=== PATIENT | female | born 1960 | race Caucasian/White ===

== ENCOUNTER 2017-02-16 08:51 | Emergency (ER) | payer OTHER ==
[~2017-02-16] VITALS: Ht 165.1 cm; Wt 57.4 kg
[2017-02-16] MEDS ORDERED: SODIUM CHLORIDE 0.9% 1000ML 1,000 ML IV STA (08:56)
[2017-02-16 09:00] VITALS: TEMP 36.8; Ht 165.1 cm; Wt 57.4 kg
[2017-02-16] MEDS ORDERED: HYDROmorphone INJ 0.5 MG/0.5 ML SYR IV STA ×2 (09:03→11:37)
[2017-02-16] MEDS ORDERED: METOCLOPRAMIDE HCL INJ 5 MG/ML 2 ML VIAL IV STA (09:03)
[2017-02-16] MEDS ORDERED: OPTIRAY 320 IV PRN (09:15)
[2017-02-16 09:17] VITALS: O2SAT 93
[2017-02-16 09:27] LABS: BASO % 0.2 %; BASO ABS # 0.02 K/uL (0-0.2); EOS % 0.1 %; HEMATOCRIT 25.9 % (37-47); IG% 3.7 %; LYMPH % 7.5 %; LYMPH ABS # 0.73 K/uL (1.2-3.4); MEAN CELL VOLUME 91.5 fL (80-100); MEAN CORPUSCULAR HGB CONC 32.8 g/dl (32-36); MEAN PLATELET VOLUME 9.7 fL (7.4-10.4); MONO % 8.4 %; NEUT % 80.1 %; PLATELET COUNT 299 K/uL (130-400); RED BLOOD COUNT 2.83 M/uL (4.2-5.4); WHITE BLOOD COUNT 9.72 K/uL (4.8-10.8)
--- NOTE | 2017-02-16 09:27 | EMERGENCY ROOM VISIT NOTE ---
History Report prepared by Karrie: Skip Hope Under the Supervision of: Dr. Lino Frederick M.D. First contact with patient: 08:56 Stated Complaint: ABDOMINAL PAIN History of Present Illness The patient is a 56 year old female who presents to the Emergency Room with complaints of persistent abdominal pain that started this morning. She rates her pain as a 10/10 in severity. 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 She was discharged to [facility] approximately 2 days ago. This morning she noticed abdominal pain as well as bloody stools. She reports feeling the need to have a bowel movement, which she describes as a "burning sensation". She notes there were blood clots in her colostomy bag. 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 Review of Systems See HPI for pertinent positives & negatives. A total of 10 systems reviewed and were otherwise negative. Past Medical & Surgical Medical Problems: (1) Adenocarcinoma of small bowel (2) GERD (gastroesophageal reflux disease) Surgical Problems: (1) Colostomy in place Social History Alcohol Use: none Drug Use: none Marital Status: Housing Status: lives with family Occupation Status: retired Current/Historical Medications Scheduled Docusate Sodium (Docusate Sodium), 100 MG PO BID Dronabinol (Marinol), 2.5 MG PO BID Enoxaparin (Lovenox), 40 MG SQ DAILY Fluticasone Propionate (Nasal) (Flonase Allergy Relief), 2 SPRAY NA DAILY Gabapentin (Gabapentin), 100 MG PO TID Pantoprazole (Protonix), 40 MG PO DAILY Polyethylene Glycol 3350 (Miralax), 17 GM PO DAILY Potassium Ext Rel (Klor-Con), 20 MEQ PO DAILY Senna/Docusate Sod (Senokot S), 1 TAB PO DAILY Scheduled PRN Acetaminophen (Tylenol), 500 MG PO Q4 PRN for Pain Bisacodyl (Cvs Bisacodyl), 10 MG RE DAILY PRN for PRN Lorazepam (Ativan), 0.5 MG PO Q8H PRN for Anxiety Magnesium Hydroxide (Milk of Magnesia), 30 ML PO DAILY PRN for Constipation Ondansetron Hcl (Zofran), 4 MG PO Q6 PRN for Nausea Oxycodone HCl (Oxycodone HCl), 5 MG PO Q4 PRN for Pain Oxycodone HCl (Oxycodone HCl), 10 MG PO Q4 PRN for Pain Sodium Phosphate/Biphosphate (Fleet Enema), 1 EA [place] DAILY PRN for Constipation Allergies Coded Allergies: Amoxicillin (Unverified Allergy, Unknown, UNKNOWN, 02/16/17) CI Pigment Blue 63 (Unverified Allergy, Unknown, UNKNOWN, 02/16/17) Cephalosporins (Unverified Allergy, Unknown, UNKNOWN, 02/16/17) Duloxetine (Unverified Allergy, Unknown, UNKNOWN, 02/16/17) Vancomycin (Unverified Allergy, Unknown, UNKNOWN, 02/16/17) Physical Exam Vital Signs Date Time Temp Pulse Resp B/P (MAP) Pulse Ox O2 Delivery O2 Flow Rate FiO2 02/16/17 13:24 78 16 95/62 94 02/16/17 11:44 102 18 91/60 94 Nasal Cannula 02/16/17 09:38 96 15 97/60 94 Room Air 02/16/17 09:22 96 02/16/17 09:17 93 Room Air 02/16/17 09:00 36.8 98 18 98/63 95 Room Air Physical Exam GENERAL: Patient is a healthy-appearing well-nourished 56 year old female. HEAD: Normocephalic atraumatic EYES: Ocular movements intact pupils equal and react to light OROPHARYNX mucous membranes are moist no exudates present no erythema or edema present NECK: Supple no nuchal rigidity CHEST: Good equal expansion LUNGS: Clear and equal to auscultation CARDIAC: Normal S1 and S2 ABDOMEN: Diffusely tender throughout. Midline surgical scar in place closed by henok, appears to be healing well. Surgical drain in place and is draining a yellowish fluid. RECTAL: Exam grossly positive and exquisitely tender. BACK: No CVA tenderness EXTREMITIES: No pain upon palpation normal muscle strength in all groups no clubbing cyanosis or edema NEURO: Patient is following commands and answering questions appropriately. Alert and oriented x3 Cranial Nerves 2-12 grossly intact Medical Decision & Procedures ER Provider Diagnostic Interpretation: Radiology results as stated below per my review and radiologist interpretation: CT OF THE ABDOMEN AND PELVIS WITH CONTRAST CLINICAL HISTORY: Rectal bleeding and abdominal pain. Ostomy. COMPARISON STUDY: None. TECHNIQUE: Following IV administration of 93 mL of Optiray-320, axial images of the abdomen and pelvis were obtained from the lung bases to the proximal femurs. Images were reviewed in the axial, sagittal, and coronal planes. IV contrast was administered without complication. A dose lowering technique was utilized adhering to the principles of ALARA. CT DOSE: 300.73 mGy.cm FINDINGS: Images of the lower chest partially visualize small bilateral pleural effusions with segmental bilateral lower lobe opacities which favor atelectasis. A radiodensity within the right atrium is partially imaged and could reflect a Mcibrm-z-Eudk catheter. The liver, spleen, adrenal glands, kidneys and pancreas are unremarkable. There is no biliary or pancreatic ductal dilatation. There are postoperative findings consistent with a colectomy with right lower quadrant ileostomy. Skin henok are noted from laparotomy as well as a right upper quadrant surgical drain. Diffuse mesenteric infiltration is noted as well as a small amount of loculated ascites within the abdomen with peritoneal enhancement. No pneumatosis, free air or portal venous gas is present. There is no abdominal or pelvic lymphadenopathy. Moderate atherosclerotic plaque of the abdominal aorta is noted. Major vasculature of the abdomen is patent. No suspicious osseous lesion is present. There is moderate perirectal infiltration with mild rectal wall thickening. IMPRESSION: 1. Postoperative findings consistent with recent colectomy with right lower quadrant ileostomy. Surgical drain in place. Diffuse mesenteric infiltration with a small amount of loculated ascites within the abdomen with peritoneal enhancement. This enhancement is nonspecific and may be postsurgical given recent surgery. However, an infectious etiology could appear similar and the findings could be correlated with clinical evidence for an infection. No bowel obstruction. 2. Nonspecific perirectal infiltration with mild rectal wall thickening. 3. Small bilateral pleural effusions with lower lobe segmental opacities which favor atelectasis. Electronically signed by: Wolfgang Preciado M.D. 02/16/2017 10:48 AM Laboratory Results 02/16/17 09:11 Red Blood Count 2.83, Mean Corpuscular Volume 91.5, Mean Corpuscular Hemoglobin 30.0, Mean Corpuscular Hemoglobin Concent 32.8, Mean Platelet Volume 9.7, Neutrophils (%) (Auto) 80.1, Lymphocytes (%) (Auto) 7.5, Monocytes (%) (Auto) 8.4, Eosinophils (%) (Auto) 0.1, Basophils (%) (Auto) 0.2, Neutrophils # (Auto) 7.78, Lymphocytes # (Auto) 0.73, Monocytes # (Auto) 0.82, Eosinophils # (Auto) 0.01, Basophils # (Auto) 0.02 02/16/17 09:11 Test 02/16/17 09:11 02/16/17 09:23 White Blood Count 9.72 K/uL (4.8-10.8) Red Blood Count 2.83 M/uL (4.2-5.4) Hemoglobin 8.5 g/dL (12.0-16.0) Hematocrit 25.9 % (37-47) Mean Corpuscular Volume 91.5 fL (80-100) Mean Corpuscular Hemoglobin 30.0 pg (25-34) Mean Corpuscular Hemoglobin Concent 32.8 g/dl (32-36) Platelet Count 299 K/uL (130-400) Mean Platelet Volume 9.7 fL (7.4-10.4) Neutrophils (%) (Auto) 80.1 % Lymphocytes (%) (Auto) 7.5 % Monocytes (%) (Auto) 8.4 % Eosinophils (%) (Auto) 0.1 % Basophils (%) (Auto) 0.2 % Neutrophils # (Auto) 7.78 K/uL (1.4-6.5) Lymphocytes # (Auto) 0.73 K/uL (1.2-3.4) Monocytes # (Auto) 0.82 K/uL (0.11-0.59) Eosinophils # (Auto) 0.01 K/uL (0-0.5) Basophils # (Auto) 0.02 K/uL (0-0.2) RDW Standard Deviation 54.5 fL (36.4-46.3) RDW Coefficient of Variation 16.7 % (11.5-14.5) Immature Granulocyte % (Auto) 3.7 % Immature Granulocyte # (Auto) 0.36 K/uL (0.00-0.02) Toxic Vacuolation 1+ Polychromasia 1+ Prothrombin Time 14.7 SECONDS (9.0-12.0) Prothromb Time International Ratio 1.4 (0.9-1.1) Activated Partial Thromboplast Time 35.8 SECONDS (21.0-31.0) Partial Thromboplastin Ratio 1.4 Est Creatinine Clear Calc Drug Dose 134.6 ml/min Estimated GFR () 132.0 Estimated GFR (Non- 113.9 BUN/Creatinine Ratio 10.0 (10-20) Calcium Level 7.6 mg/dl (8.5-10.1) Total Bilirubin 4.5 mg/dl (0.2-1) Direct Bilirubin mg/dl (0-0.2) Aspartate Amino Transf (AST/SGOT) 59 U/L (15-37) Alanine Aminotransferase (ALT/SGPT) 53 U/L (12-78) Alkaline Phosphatase 190 U/L (45-117) Total Protein 5.5 gm/dl (6.4-8.2) Albumin 1.3 gm/dl (3.4-5.0) Lipase 848 U/L (73-393) Bedside Hemoglobin 8.5 g/dl (12.0-16.0) Bedside Hematocrit 25 % (37-47) Bedside Sodium 133 mEq/L (135-144) Bedside Potassium 3.6 mEq/L (3.3-5.0) Bedside Chloride 92 mEq/L (101-112) Bedside Total CO2 33 mEq/l (24-31) Anion Gap 12.0 mmol/L (16-25) Bedside Blood Urea Nitrogen < 3 mg/dl (7-18) Bedside Creatinine 0.5 mg/dl (0.6-1.3) Bedside Glucose (other) 92 mg/dl (70-99) Bedside Ionized Calcium (Lashell) 1.07 mmol/l (1.12-1.32) Labs reviewed by ED physician. Medications Administered Medications (Trade) Dose Ordered Sig/Gómez Route Start Time Stop Time Status Last Admin Dose Admin Sodium Chloride 1,000 ml @ 999 mls/hr Q1H1M STAT IV 02/16/17 08:56 02/16/17 09:56 DC 02/16/17 09:36 999 MLS/HR Hydromorphone HCl (Dilaudid Inj) 0.5 mg NOW STAT IV 02/16/17 09:03 02/16/17 09:04 DC 02/16/17 09:37 0.5 MG Metoclopramide HCl (Reglan Inj) 10 mg NOW STAT IV 02/16/17 09:03 02/16/17 09:04 DC 02/16/17 09:37 10 MG Hydromorphone HCl (Dilaudid Inj) 0.5 mg NOW STAT IV 02/16/17 11:37 02/16/17 11:38 DC 02/16/17 11:44 0.5 MG Ondansetron HCl (Zofran Inj) 4 mg NOW STAT IV 02/16/17 11:37 02/16/17 11:38 DC 02/16/17 11:44 4 MG ECG Indication: abdominal pain Rate (beats per minute): 98 Rhythm: normal sinus Findings: no acute ischemic change, no ectopy ED Course 0900: Past medical records reviewed. The patient was evaluated in room B9. A complete history and physical examination was performed. 0856: NSS 1,000 mL IV 0903: Reglan HCl 10 mg IV, Dilaudid HCl 0.5 mg IV 1137: Zofran 4 mg IV, Dilaudid 0.5 mg IV 1108: I discussed the patients case with Dr. Walton, [facility] General Surgery. He felt this will be a one-time event due to bleeding from the surgery and the fact it was clotted blood. 1135: I reevaluated the patient. She is resting comfortably and would like to go back to [facility]. I will get in touch with Dr. Recinos. 1143: I discussed the patients case with Dr. Recinos, Internal Medicine. The patient has been accepted back to [facility]. 1150: I reevaluated the patient. She is feeling well and resting comfortably. I discussed her discharge instructions and she verbalized complete understanding and agreement. Medical Decision Prior records/ancillary studies reviewed. Triage Nursing notes reviewed. The patient's history was concerning for abdominal pain. Differential diagnosis: Etiologies such as appendicitis, diverticulitis, PUD, biliary pathology, UTI, pancreatitis, obstruction, mesenteric ischemia, aortic pathology, infections, inflammatory bowel disease, renal colic, as well as others were entertained. This is a 56-year-old female who presents emergency department after a bowel movement with large amounts of red blood clots. On physical examination the patient is not bleeding. And I will note that her hemoglobin is actually higher than when she was discharged from [facility]. She is requesting pain medication therefore she was given Dilaudid 2. She was sent for CAT scan the abdomen and pelvis. I did discuss the case with the on-call surgeon and [place] who felt that the patient could be safely discharged and felt that this would be a one-time event of leftover blood from her surgery. I did discuss my findings with the patient and offered admission however she would like to be discharged back to [facility]. For this reason I did discuss the case with Dr Recinos who readily accepted the patient. Medication Reconcilliation Current Medication List: was personally reviewed by me Blood Pressure Screening Patient's blood pressure: Low blood pressure Consults Time Called: 1104 Consulting Physician: Dr. Walton, [facility] General Surgery Returned Call: 1108 I discussed the patients case with Dr. Walton, [facility] General Surgery. He felt this will be a one-time event due to bleeding from the surgery and the fact it was clotted blood. Additional Consults: Time Called: 1135 Consulted Physician: Dr. Recinos, Internal Medicine Returned Call: 1143 Additional Comments: I discussed the patients case with Dr. Recinos, Internal Medicine. The patient has been accepted back to [facility]. Impression Primary Impression: Rectal bleeding Scribe Attestation The scribe's documentation has been prepared under my direction and personally reviewed by me in its entirety. I confirm that the note above accurately reflects all work, treatment, procedures, and medical decision making performed by me. Departure Information Dispostion Rehab Inpatient Facility Forms Call Back Authorization, HOME CARE DOCUMENTATION FORM, IMPORTANT VISIT INFORMATION, School Instructions, Work Instructions Additional Instructions You have been examined and treated today on an emergency basis only. This is not a substitute for, or an effort to provide, complete comprehensive medical care. It is impossible to recognize and treat all injuries or illnesses in a single emergency department visit. It is therefore important that you follow up closely with Dr Recinos. Call as soon as possible for an appointment. Thank you for your time and consideration. I look forward to speaking with you again soon. Please don't hesitate to call us if you have any questions.
[2017-02-16 09:37] LABS: ISTAT CARBON DIOXIDE 33 mEq/l (24-31); ISTAT CHLORIDE 92 mEq/L (101-112); ISTAT CREATININE 0.5 mg/dl (0.6-1.3); ISTAT HEMATOCRIT 25 % (37-47); ISTAT HEMOGLOBIN 8.5 g/dl (12.0-16.0); ISTAT IONIZED CALCIUM 1.07 mmol/l (1.12-1.32); ISTAT SODIUM 133 mEq/L (135-144)
[2017-02-16 09:37] LABS: INR 1.4 (0.9-1.1); PARTIAL THROMBOPLASTIN RATIO 1.4; PROTHROMBIN TIME (PATIENT) 14.7 SECONDS (9.0-12.0)
[2017-02-16 09:51] LABS: COMPLETE YES; POLYCHROMASIA 1+; VACUOLIZATION 1+
[2017-02-16] MEDS ORDERED: BISA10SU54 RE (09:58)
[2017-02-16] MEDS ORDERED: SODIENE PR (09:58)
[2017-02-16] MEDS ORDERED: DOCU100C31 PO (09:58)
[2017-02-16] MEDS ORDERED: SENN-65 PO (09:58)
[2017-02-16] MEDS ORDERED: MOMLX PO (09:58)
[2017-02-16] MEDS ORDERED: ACET-1256 PO (09:58)
[2017-02-16] MEDS ORDERED: POTA20TA16 PO (09:58)
[2017-02-16] MEDS ORDERED: POLY335019 PO (09:58)
[2017-02-16] MEDS ORDERED: OXYC-609 PO (09:59)
[2017-02-16] MEDS ORDERED: FLUT0.15 (09:59)
[2017-02-16] MEDS ORDERED: PANT40TA PO (09:59)
[2017-02-16] MEDS ORDERED: MRN/25 PO (09:59)
[2017-02-16] MEDS ORDERED: ONDA4TAB46 PO (09:59)
[2017-02-16] MEDS ORDERED: ENOX40IN SQ (09:59)
[2017-02-16] MEDS ORDERED: LORA-741 PO (09:59)
[2017-02-16] MEDS ORDERED: NRN100 PO (09:59)
[2017-02-16 10:15] LABS: ALKALINE PHOSPHATASE 190 U/L (45-117); ALT/SGPT 53 U/L (12-78); AST/SGOT 59 U/L (15-37); BLOOD UREA NITROGEN 4 mg/dl (7-18); CALCIUM 7.6 mg/dl (8.5-10.1); CARBON DIOXIDE 29 mmol/L (21-32); CHLORIDE 97 mmol/L (98-107); CREATININE 0.41 mg/dl (0.60-1.20); GLUCOSE 91 mg/dl (70-99); POTASSIUM 3.5 mmol/L (3.5-5.1); SODIUM 132 mmol/L (136-145)
--- NOTE | 2017-02-16 10:49 | DIAGNOSTIC IMAGING REPORT ---
CT OF THE ABDOMEN AND PELVIS WITH CONTRAST CLINICAL HISTORY: Rectal bleeding and abdominal pain. Ostomy. COMPARISON STUDY: None. TECHNIQUE: Following IV administration of 93 mL of Optiray-320, axial images of the abdomen and pelvis were obtained from the lung bases to the proximal femurs. Images were reviewed in the axial, sagittal, and coronal planes. IV contrast was administered without complication. A dose lowering technique was utilized adhering to the principles of ALARA. CT DOSE: 300.73 mGy.cm FINDINGS: Images of the lower chest partially visualize small bilateral pleural effusions with segmental bilateral lower lobe opacities which favor atelectasis. A radiodensity within the right atrium is partially imaged and could reflect a [id number] catheter. The liver, spleen, adrenal glands, kidneys and pancreas are unremarkable. There is no biliary or pancreatic ductal dilatation. There are postoperative findings consistent with a colectomy with right lower quadrant ileostomy. Skin henok are noted from laparotomy as well as a right upper quadrant surgical drain. Diffuse mesenteric infiltration is noted as well as a small amount of loculated ascites within the abdomen with peritoneal enhancement. No pneumatosis, free air or portal venous gas is present. There is no abdominal or pelvic lymphadenopathy. Moderate atherosclerotic plaque of the abdominal aorta is noted. Major vasculature of the abdomen is patent. No suspicious osseous lesion is present. There is moderate perirectal infiltration with mild rectal wall thickening. IMPRESSION: 1. Postoperative findings consistent with recent colectomy with right lower quadrant ileostomy. Surgical drain in place. Diffuse mesenteric infiltration with a small amount of loculated ascites within the abdomen with peritoneal enhancement. This enhancement is nonspecific and may be postsurgical given recent surgery. However, an infectious etiology could appear similar and the findings could be correlated with clinical evidence for an infection. No bowel obstruction. 2. Nonspecific perirectal infiltration with mild rectal wall thickening. 3. Small bilateral pleural effusions with lower lobe segmental opacities which favor atelectasis. Electronically signed by: Wolfgang Preciado M.D. 02/16/2017 10:48 AM Dictated Date/Time: 02/16/2017 10:38 AM
[2017-02-16] MEDS ORDERED: ONDANSETRON INJ 2 MG/ML 2 ML VIAL IV STA (11:37)
[2017-02-16 13:24] VITALS: BP 95/62; PULSE 78; O2SAT 94
== END 2017-02-16 12:55 | disposition home or self-care (01) ==
LOC: EDBD 08:51 → C.EDB 08:54
DX: K62.5 Hemorrhage of anus and rectum (principal); K21.9 Gastro-esophageal reflux disease without esophagitis; Z85.038 Personal history of other malignant neoplasm of large intestine; Z93.3 Colostomy status; Z79.899 Other long term (current) drug therapy